=== PATIENT | female | born 1955 | race Caucasian/White ===

== ENCOUNTER → 2017-07-18 08:29 | Outpatient (CLI) | payer OTHER, SELFPAY ==
--- NOTE | 2017-07-18 08:32 | RAD_ITS ---
STUDY: X-RAY - LEFT SHOULDER REASON FOR EXAM: Female, 62 years old. Pain radiating into left arm TECHNIQUE: 3 view(s) of the shoulder. COMPARISON: None. FINDINGS: There is mild degenerative arthrosis of the glenohumeral articulation. Normal acromioclavicular joint. Normal acromion. Normal humeral head and visualized proximal humerus. The soft tissue structures are unremarkable. There is no demonstrated fracture. Normal visualized pulmonary apex. RAD/Shoulder min 2 Views IMPRESSION: Mild degenerative changes of the glenohumeral joint. Electronically Signed: Mathieu Breen MD at 17:08 EDT , Service support ,
== END ==
PROVIDERS: Family Provider Nurse Practitioner Primary Care; PCP Nurse Practitioner Primary Care; Visit Provider Orthopaedic Surgery
DX: M25.512 Pain in left shoulder (principal)
CPT/HCPCS: 73030

== ENCOUNTER 2017-11-02 18:00 | Outpatient (RCR) | payer OTHER, SELFPAY ==
--- NOTE | 2017-10-18 12:19 | HP.PTEVAL_ITS ---
Patient's Visit Information TOBIN CHAIDEZ is a 62 year old F referred to Physical Therapy by Kitty Maharaj DO with a diagnosis of Hip Pain/Lumbar. Date of Evaluation: 10/18/17 Physical Therapist: Loyda Lee - Visit Plan Frequency: 3x /Week Duration: 4 Weeks Plan: Core S/S. Provide current ex's for HEP next session with pics and progress clinical activities slowly. - Subjective Subjective: Patient reports that she has had right sided hip joint pain for as long as she can remember. She has a history of OA and just thought it was arthritis so she ignored the pain. The last few months she felt like her jeans were fitting funny. She felt like she had decreased muscle mass on the right and her emely seam was shifting. She has been to Dr. Maharaj before and decided to see her about this. MD sent her to PT. She reports that pain at its worst is 4/10 Agg: bending forwards, sitting, driving and walking long distances. Pain at its best is a 0/10 Eases: laying down on her back and Ibuprofen. She has had no MRI or x-rays recently but was seeing Dr. Gracia a few years ago for tailbone pain. She had an MRI and x-rays at that time. The tailbone pain MD thought was from an old fracture and just went away. 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 Her sleep is disturbed when she rolls over onto the right side. She has N/T in the big toe that is constant. She has an EMG on December 14. She is sedentary for most of her life and does not exercise. PMHX: hysterectomy, osteoporosis, TMJ, Thyroid. Meds: Synthroid, Zyrtec, Nexium PRN - Objective Posture: FH, RS, Increased kyphosis. Gait: no deviation noted. Stance: mild decrease in muscle mass Right>Left. HR.TR: able without incidence and equal weight shifting. SLS: 10 sec then UE A required- equal bilaterally. ROM: Lumbar: forward flexion: can touch toes but is slow and reports right hip pain, Extn: WNL, SB and Rot: WNL but does report ?discomfort?. Hip/Knee/Ankle: WNL. Sensation/Reflex: WNL- equal bilaterally. Strength: Core: fair minus, Hip: 4/5 throughout, Knee: 5/5, ankle: 5/5- symmetrical. Clam: 3/5. Figure 4: positive , SAPNA: positive. Dural signs: positive on right. Slump: positive on Right, Neural flossing: positive on right with HS stretching. Flex: HS: moderate, Gastroc: mod - Goals Goal 1:: Patient will be I with HEP and progression Goal Time Frame: 4-6 Weeks Goal 2:: Patient will maintain proper posture t/o tx session to demo increased core s/s Goal Time Frame: 4-6 Weeks Goal 3:: Patient will demo 10 clam shells with no soreness/tiredness Goal Time Frame: 2-4 Weeks Goal 4:: Patient will report no N/T for 1 week Goal Time Frame: 4-6 Weeks - Rehabilitation Potential Physical Therapy Diagnosis: Patient presents with hypomobility- she has decrease strength, flex and muscular endurance leading to poor posture and increased pain with activity. Rehabilitation Potential: Fair - Anticipated Interventions Patient/Client Instruction: Educate patient on: Benefits of Fitness Program For the Purpose of:: To increase tolerance to activity/condition/position Therapeutic Exercise to Include: Strength training, Endurance training, Agility training, Body mechanics, Postural training, Flexibilty training, Gait and locomotor training, Dynamic Lumbar Stabilization For the Purpose of:: To improve muscle performance and motor function TENS: Yes Cryotherapy (ice pack, ice massage): Yes Thermo therapy (hot pack): Yes Ultrasound (thermal/non thermal): Yes For the Purpose of:: To decrease pain Thank you for the opportunity to evaluate your patient. For Medicare and Medicare HMO plans, please review the plan of care and approve it. It will need to be FAXED BACK to us at [phone] for Medicare purposes. Please let me know if there are questions or concerns regarding this plan of care. Physician Signature: Date:
--- NOTE | 2018-01-30 16:39 | HP.PT.NRP ---
HP - Discharge Summary (1) - Patient Information TOBIN CHAIDEZ was seen in my office for initial evaluation on 10/18/17. The following Plan of Care was established for this patient: Initial Frequency: 3x /Week Initial Duration: 4 Weeks - Anticipated Interventions Patient/Client Instruction: Educate patient on: Benefits of Fitness Program For the Purpose of:: To increase tolerance to activity/condition/position Therapeutic Exercise to Include: Strength training, Endurance training, Agility training, Body mechanics, Postural training, Flexibilty training, Gait and locomotor training, Dynamic Lumbar Stabilization For the Purpose of:: To improve muscle performance and motor function TENS: Yes Cryotherapy (ice pack, ice massage): Yes Thermo therapy (hot pack): Yes Ultrasound (thermal/non thermal): Yes For the Purpose of:: To decrease pain This patient was last seen in our office . Pertinent comments regarding their Physical therapy will appear below: Patient has not attended physical therapy in over 8 weeks and is appropriate for d/c. At this point I will be discontinuing this patient from physical therapy. I would be happy to see this patient again in the future if found appropriate by the physician. Thank you! Loyda Lee
== END 2017-11-02 19:00 | disposition home or self-care (01) ==
LOC: PT 18:00
PROVIDERS: Family Provider Nurse Practitioner Primary Care; PCP Nurse Practitioner Primary Care; Visit Provider Orthopaedic Surgery
DX: M62.50 Muscle wasting and atrophy, not elsewhere classified, unspecified site (principal); G57.01 Lesion of sciatic nerve, right lower limb
CPT/HCPCS: 97110; 97162

== ENCOUNTER → 2017-12-26 08:21 | Outpatient (CLI) | payer OTHER, SELFPAY | PROVIDERS: Family Provider Nurse Practitioner Primary Care; PCP Nurse Practitioner Primary Care; Visit Provider Nurse Practitioner Primary Care | DX: Z12.31 Encounter for screening mammogram for malignant neoplasm of breast (principal) | CPT/HCPCS: 77063; 77067 ==

== ENCOUNTER → 2018-09-20 | Outpatient (CLI) | payer OTHER, SELFPAY ==
--- NOTE | 2018-09-20 14:48 | RAD_ITS ---
STUDY: X-RAY - RIGHT SHOULDER REASON FOR EXAM: Female, 63 years old. Pain. Status post fall. TECHNIQUE: 4 view(s) of the shoulder. COMPARISON: Left shoulder dated July 18, 2017 FINDINGS: There are mild degenerative changes of the glenohumeral articulation. There are mild degenerative changes of the acromioclavicular joint. Normal acromion. Normal humeral head and visualized proximal humerus. The soft tissue structures are unremarkable. Normal visualized pulmonary apex. RAD/Shoulder min 2 Views IMPRESSION: Mild degenerative changes. Electronically Signed: Mary Gallardo MD at 16:03 EDT Tel , Service support ,
== END | disposition home or self-care (01) ==
LOC: HPRAD 14:47
PROVIDERS: Family Provider Nurse Practitioner Primary Care; PCP Nurse Practitioner Primary Care; Referring Provider Orthopaedic Surgery; Visit Provider Orthopaedic Surgery
DX: M25.511 Pain in right shoulder (principal)
CPT/HCPCS: 73030

== ENCOUNTER 2018-12-09 12:51 | Emergency (ER) | payer OTHER, SELFPAY ==
[2018-12-09 12:52] VITALS: BP 109/70; PULSE 75; RESP 15; TEMP 36.7; O2SAT 98; BMI 22.7
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
== END 2018-12-09 15:21 | disposition home or self-care (01) ==
PROVIDERS: Emergency Provider Emergency Medicine; Family Provider Nurse Practitioner Primary Care; PCP Nurse Practitioner Primary Care
DX: S16.1XXA Strain of muscle, fascia and tendon at neck level, initial encounter (principal); Z87.891 Personal history of nicotine dependence; V43.52XA Car driver injured in collision with other type car in traffic accident, initial encounter; Y93.I9 Activity, other involving external motion; Y92.410 Unspecified street and highway as the place of occurrence of the external cause; Y99.8 Other external cause status
CPT/HCPCS: 70450; 72125; 99282

== ENCOUNTER 2019-01-15 09:00 | Outpatient (RCR) | payer OTHER, SELFPAY ==
--- NOTE | 2018-12-20 15:58 | HP.PTEVAL ---
Patient's Visit Information TOBIN CHAIDEZ is a 63 year old F referred to Physical Therapy by FABY Baker with a diagnosis of Shoulder Pain. Date of Evaluation: 12/20/18 Physical Therapist: Loyda Lee DPT - Visit Plan Frequency: 2x /Week Duration: 3 Weeks Plan: Focus on right shoulder ROM and scapular s/s- modalities as needed - Subjective Findings: Hurt her right arm back in September- she was started to fall and grabbed onto a cupboard and pulled her arm. Went to see Dr. Schaffer in September and reported she had strained her RTC- did not have an injection-but did have x-rays. Waited until about a month later she was in pain and went back to have an injection (October). Over 09 of November she was really good. In the last 2-3 weeks her right shoulder is so painful. Worst: 10/10 Agg: reaching out to the side, behind the back. Best: 2/10 Eases: keeping it close to her body - uses heat a lot. 2 weeks ago she jumped and when she flinched her shoulder she thought she might pass out and has been really bad since then. Called Dr. Schaffer last week and they did not get back with her. Pain is located in the deltoid/tricep and radiates into the back and along the lower portion of the shoulder blade. 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 It now hurts all the time. Sleep: disturbed- can not lay on the right shoulder. Describes pain as excrutiating-sharp/shooting. When she moves it out of that position it lets up but still hurts. 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 Does lots of lifting. Does not feel that she can live with her shoulder the way it currently is. - Objective Posture: FH, RS, increased guarding of the right UE. Gait: no deviation lower LE but does have decreased arm swing on the right with decreased trunk rotation. Palpation: tender along upper trap, scapula and deltoid. ROM: finger dexterity: WNL, Wrist: WNL, Elbow: WNL Shoulder AROM: flexion: 90 degrees, Abd: 85 degrees, IR: to pocket, ER: 40 degrees with pain at all end ranges AAROM/PROM: hard to measure due to increased pain and guarding. 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 Scap: fair minus. Special Test: impingment: unable to test secondary to decreased ROM, Empty can: positive, lift off: positive - Goals Goal 1:: Patient will be I with HEP and progression Goal Time Frame: 4-6 Weeks Goal 2:: Patient will demo full Arom of the right shoulder Goal Time Frame: 4-6 Weeks Goal 3:: Patient will maintain proper posture t/o tx session to demo increased scap s/s. Goal Time Frame: 4-6 Weeks Goal 4:: Patient will report 0/10 pain for 1 week Goal Time Frame: 4-6 Weeks - Rehabilitation Potential Physical Therapy Diagnosis: Patient presents with hypomobility- she has decreased ROM, strength and muscular endurance leading to poor posture and increased pain with ADL's. Rehabilitation Potential: Fair - Anticipated Interventions Patient/Client Instruction: Educate patient on: Benefits of Fitness Program Therapeutic Exercise to Include: Strength training, Body mechanics, Postural training, Flexibilty training, Passive ROM, Active ROM, Scapular Strength/Stabilization For the Purpose of:: To improve muscle performance and motor function TENS: Yes Cryotherapy (ice pack, ice massage): Yes Thermo therapy (hot pack): Yes Ultrasound (thermal/non thermal): Yes Thank you for the opportunity to evaluate your patient. For Medicare and Medicare HMO plans, please review the plan of care and approve it. It will need to be FAXED BACK to us at [phone] for Medicare purposes. For Medicare only, by signing this I certify the plan of care. Please let me know if there are questions or concerns regarding this plan of care. Physician Signature: Date:
--- NOTE | 2019-01-15 09:20 | HP.PTDCSUM_ITS ---
HP - PT D/C Summary It has been my pleasure to treat TOBIN CHAIDEZ under orders from FABY Baker, for the diagnosis of Shoulder Pain for a total of 7 visit(s). Discharge Date: Please see the following information for a summary of their discharge status. - Subjective Subjective: Patient reports that the shoulder is a little better- She had a cortisone injection Dec 27- so she is not sure whether its better from the cortisone or the PT. Its still really hard to put weight through her arm, put her bra on, behind the back and overhead activities. Sleep: disturbed. Sees him next Tuesday- she wants an MRI. - Overall Improvement % Improvement: 80 - Objective Objective/Function: Posture: FH, RS, increased guarding of the right UE. Gait: no deviation lower LE but does have decreased arm swing on the right with d ecreased trunk rotation. Palpation: tender along upper trap, scapula and deltoid. ROM: finger dexterity: WNL, Wrist: WNL, Elbow: WNL Shoulder AROM: flexion: 110 degrees, Abd: 85 degrees, IR: to belt line, ER: 60 degrees with pain at all end ranges AAROM/PROM: hard to measure due to increased pain and guarding. 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 Scap: fair minus. Special Test: impingment: unable to test secondary to decreased ROM, Empty can: positive, lift off: positive. Slight changes but no significant funtional changes. - Goals Goal 1:: Patient will be I with HEP and progression Goal 2:: Patient will demo full Arom of the right shoulder Goal 3:: Patient will maintain proper posture t/o tx session to demo increased scap s/s. Goal 4:: Patient will report 0/10 pain for 1 week - Plan Plan: Return to MD for further evaluation. - D/C Information If there are questions or concerns regarding this patient's physical therapy, please feel free to call me at [phone]. Thank you for the referral of this patient. Sincerely, Loyda Lee DPT
== END 2019-01-15 19:00 | disposition home or self-care (01) ==
LOC: PT 09:00
PROVIDERS: Family Provider Nurse Practitioner Primary Care; PCP Nurse Practitioner Primary Care; Referring Provider Physician Assistant; Visit Provider Physician Assistant
DX: S46.011D Strain of muscle(s) and tendon(s) of the rotator cuff of right shoulder, subsequent encounter (principal); M75.41 Impingement syndrome of right shoulder
CPT/HCPCS: 97110; 97161; 97164

== ENCOUNTER → 2019-02-12 | Outpatient (CLI) | payer OTHER, SELFPAY ==
[2019-01-17 08:53] VITALS: BMI 22.7
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
== END | disposition home or self-care (01) ==
LOC: MRI 13:17
PROVIDERS: Family Provider Nurse Practitioner Primary Care; PCP Nurse Practitioner Primary Care; Referring Provider Orthopaedic Surgery; Visit Provider Orthopaedic Surgery
DX: M75.01 Adhesive capsulitis of right shoulder (principal)
CPT/HCPCS: 73221

== ENCOUNTER → 2019-06-04 11:59 | Outpatient (CLI) | payer OTHER, SELFPAY ==
[2019-02-14 08:07] VITALS: BMI 22.7
[2019-06-04 14:10] LABS: Ferritin 103 ng/mL (8-252)
[2019-06-05 09:10] LABS: Thyroid Peroxidase AB 30 IU/mL (0-34)
[2019-06-07 00:43] LABS: Anti-Nuclear Antibody Test Negative (.)
== END ==
PROVIDERS: PCP Nurse Practitioner Primary Care; Referring Provider Dermatology Pediatric Dermatology; Visit Provider Dermatology Pediatric Dermatology
DX: E03.8 Other specified hypothyroidism (principal); D18.01 Hemangioma of skin and subcutaneous tissue
CPT/HCPCS: 36415; 82728; 86038; 86376

== ENCOUNTER → 2020-03-06 | Outpatient (CLI) | payer OTHER, SELFPAY ==
[2019-02-14 08:07] VITALS: BMI 22.7
== END | disposition home or self-care (01) ==
LOC: MTDU 10:39
PROVIDERS: PCP Nurse Practitioner Primary Care; Referring Provider Nurse Practitioner Primary Care; Visit Provider Nurse Practitioner Primary Care
DX: Z20.828 Contact with and (suspected) exposure to other viral communicable diseases (principal)
CPT/HCPCS: 87635; C9803; U0003

== ENCOUNTER 2020-09-19 17:13 | Emergency (ER) | payer OTHER, SELFPAY ==
[2019-02-14 08:07] VITALS: BMI 22.7
[2020-09-19 17:15] VITALS: BP 162/83; PULSE 68; RESP 17; TEMP 36.5; O2SAT 97; BMI 28.6
--- NOTE | 2020-09-19 17:47 | EDS_ITS ---
HPI History of Present Illness Chief Complaint: Abd Pain Informant: patient Narrative Narrative: 65-year-old female presenting with left lower quadrant pain. Patient states she has had this for a couple of weeks. She saw her primary care physician today and was sent in to the ED due to concern for possible diverticulitis. She states she has left lower quadrant and left-sided back pain. She denies injury. Denies urinary complaints. She states she has had diarrhea and constipation intermittently. No fever. No other complaints. PFSH PFSH Home Medications levothyroxine 50 mcg PO DAILY 05/10/14 [History Last Taken Unknown] valacyclovir 500 mg PO DAILY 12/09/18 [History Last Taken Unknown] meloxicam 15 mg tablet 15 mg PO DAILY #30 tab 12/25/18 [Rx Last Taken Unknown] cyclobenzaprine 10 mg PO TID PRN #20 tablet 09/19/20 [Rx Last Taken Unknown] Allergy/AdvReac Type Severity Reaction Status Date / Time metronidazole [From Flagyl] Allergy Hives Verified 09/19/20 17:14 sulfamethoxazole Allergy Hives Verified 09/19/20 17:14 [From Bactrim] trimethoprim [From Bactrim] Allergy Hives Verified 09/19/20 17:14 Social History (Updated 02/19/19 @ 11:[address] Del Perez, DO) Smoking Status: Never smoker ROS ROS ED Constitutional Constitutional ED: Denies fever(s) Eyes Eyes: Denies change in vision ENT ENT ED: Denies rhinorrhea or sore throat Cardiovascular Cardiovascular: Denies chest pain or palpitations Respiratory/Chest Respiratory/Chest: Denies cough or dyspnea Gastrointestinal Gastrointestinal: Reports abdominal pain, constipation, diarrhea and nausea; Denies vomiting Genitourinary Genitourinary ED: Denies dysuria or hematuria Musculoskeletal Musculoskeletal: Reports back pain; Denies myalgias Integumentary Denies rash Neurologic Neurologic: Denies headache(s) Psychiatric Psychiatric: Denies suicidal thoughts EXAM Physical Exam Const Vital Signs: 09/19/20 17:15 Temperature 97.7 F L Temperature Source Temporal Pulse Rate 68 Respiratory Rate 17 Blood Pressure 162/83 H Blood Pressure Mean 109 Pulse Ox 97 Oxygen Delivery Method Room Air Positive well nourished and well developed General Appearance ED: well developed HEENT Reports normocephalic and head/scalp atraumatic Eyes PERRL and EOMs intact bilaterally Neck supple General: Negative for tenderness Chest Wall inspection of chest normal Resp normal respiratory effort and clear to auscultation bilaterally Cardio regular rate and regular rhythm GI non-distended Palpation: soft and tender LLQ; Negative for guarding or rebound tenderness present no CVA tenderness Extremity normal to inspection Neuro oriented x3 Sensorium / Orientation: alert Psych mental status grossly normal Skin no rashes or lesions noted MDM MDM MDM Narrative Medical decision making narrative: Patient declined pain medications. Labs are unremarkable. CT abdomen pelvis shows no acute process. Her back pain is likely musculoskeletal, she was given a prescription for Flexeril. She is advised to follow-up with GI physician. Advised return to ED for worsening complaints. Lab Data Attestation: I reviewed the patient's lab results. Labs: Laboratory Results - last 24 hr 09/19/20 09/19/20 09/19/20 18:30 19:10 19:10 WBC 9.8 RBC 4.74 Hgb 14.7 Hct 43.8 MCV 92.4 MCH 31.0 MCHC 33.6 RDW Std Deviation 41.3 RDW Coeff of Estela 12.1 Plt Count 284 MPV 9.9 Sodium Cancelled Potassium Cancelled Chloride Cancelled Carbon Dioxide Cancelled Anion Gap Cancelled BUN Cancelled Creatinine Cancelled Estim Creat Clear Calc Cancelled Est GFR (MDRD) Af Amer Cancelled Est GFR (MDRD) Non-Af Cancelled BUN/Creatinine Ratio Cancelled Glucose Cancelled Calcium Cancelled Urine Color Yellow Urine Clarity Clear Urine pH 6.0 Ur Specific [place] 1.015 Urine Protein Negative Urine Glucose (UA) Normal Urine Ketones Negative Urine Occult Blood Negative Urine Nitrite Negative Urine Bilirubin Negative Urine Urobilinogen Normal Ur Leukocyte Esterase Negative Urine RBC 0 SEEN Urine WBC 0 SEEN Ur Squamous Epith Cells 0 SEEN Urine Bacteria 0 SEEN Urine Mucus 0 SEEN 09/19/20 20:15 WBC RBC Hgb Hct MCV MCH MCHC RDW Std Deviation RDW Coeff of Estela Plt Count MPV Sodium 140 Potassium 3.7 Chloride 107 Carbon Dioxide 30.0 Anion Gap 3 L BUN 15 Creatinine 0.66 Estim Creat Clear Calc 70.30 Est GFR (MDRD) Af Amer 115 Est GFR (MDRD) Non-Af 95 BUN/Creatinine Ratio 22.6 H Glucose 93 Calcium 9.4 Urine Color Urine Clarity Urine pH Ur Specific [place] Urine Protein Urine Glucose (UA) Urine Ketones Urine Occult Blood Urine Nitrite Urine Bilirubin Urine Urobilinogen Ur Leukocyte Esterase Urine RBC Urine WBC Ur Squamous Epith Cells Urine Bacteria Urine Mucus Radiography Diagnostic Testing: Radiology Impression Abdomen/Pelvis CT 09/19/20 20:26 IMPRESSION: 1. No evidence of acute intra-abdominal or pelvic process. 2. Bilateral renal cysts. 3. Old granulomatous disease. 4. Gallstone without acute cholecystitis. 5. Status post hysterectomy. Electronically Signed: Stephon KellyDO at 20:58 EDT Tel [phone], Service support , Discharge Plan Triage Chief Complaint: Abd Pain ED Provider: Alexandra Coronel Dx/Rx/DC Orders Clinical Impression: Back pain, Abdominal pain, LLQ Instructions: ED Abdominal Pain Unkn Cause Fem, ED Back Pain (Acute or Chronic) Prescriptions: New cyclobenzaprine [cyclobenzaprine] 10 MG tablet 10 mg PO TID PRN (Reason: Muscle Spasm) Qty: 20 RF: 0 No Action meloxicam [Mobic] 15 mg tablet 15 mg PO DAILY Qty: 30 RF: 0 levothyroxine 50 MCG tablet 50 mcg PO DAILY RF: 0 valacyclovir 500 MG tablet 500 mg PO DAILY RF: 0 Primary Care Provider: Frederick Soto Referrals: Aubrey Lopez MD [NON-STAFF] - Frederick Soto MD [Primary Care Provider] - Disposition Disposition: Home, self care
[2020-09-19 19:08] LABS: Bacteria 0 SEEN /hpf (None Seen); Mucous, Urine 0 SEEN /hpf (<or=2+); Red Blood Cells-Urine 0 SEEN /hpf (0-5); Squamous Epithelial Cells - UA 0 SEEN /hpf (5-10); White Blood Cells 0 SEEN /hpf (0-5)
[2020-09-19 19:09] LABS: Color, Urine Yellow (Yellow); Glucose, Dipstick Normal (Normal); Ketone-Dipstick Negative (Negative); Leukocyte Esterase-Dipstick Negative /ul (Negative); Nitrite-Dipstick Negative (Negative); Occult Blood-Urine Negative /ul (Negative); Protein-Dipstick Negative (Negative); Specific Gravity, Urine 1.015 (1.002-1.030); Urine Bilirubin Dipstick Negative (Negative); Urine Clarity Clear (Clear); Urine Urobilinogen Normal (Normal)
[2020-09-19 19:21] LABS: Hematocrit 43.8 % (37-47); Hemoglobin 14.7 g/dL (12.0-15.0); Mean Corp Hgb Conc 33.6 g/dL (32-36); Mean Corpuscular Volume 92.4 fL (81-99); Mean Platelet Vol. 9.9 fl (6.2-12.0); Platelet Count 284 K/mm3 (150-450); RBC Distribution Width CV 12.1 % (11.6-14.6); RBC Distribution Width SD 41.3 fl (35.1-43.9); Red Blood Count 4.74 M/mm3 (4.2-5.4); White Blood Count 9.8 K/mm3 (4.4-11.0)
--- NOTE | 2020-09-19 20:26 | CT_ITS ---
STUDY: CT ABDOMEN AND PELVIS WITH CONTRAST REASON FOR EXAM: Female, 65 years old. Lower quadrant pain. RADIATION DOSAGE (If Supplied By Facility): CTDIvol = ( 16.28 ) mGy, DLP = ( 1029.92 ) mGycm TECHNIQUE: Transaxial images were obtained from the dome of the diaphragm to the symphysis pubis with oral contrast. Oral and amp; IV Gastrografin and amp; 100mL Isovue-300 was administered. Sagittal and coronal images were reconstructed. Individualized dose optimization techniques were used for this CT. COMPARISON: None. FINDINGS: Small calcified granuloma in the right lower lobe just above the diaphragm. Lungs are otherwise clear. The visualized portions of the heart are within normal limits. Normal liver. Single small gallstone without inflammatory change or biliary ductal dilatation. There are multiple benign calcified granulomata of the spleen. Normal pancreas. Normal bilateral adrenal glands. All cortical cyst in the upper pole of the right kidney. The kidney is otherwise unremarkable. The small exophytic cyst off the lower pole of the left kidney. Normal visualized ureters. Normal visualized stomach. Normal small intestine. Normal colon. There is non-visualization of the appendix. Minimal atherosclerotic changes in the aorta without aneurysm or dissection. Normal inferior vena cava. Normal retroperitoneum. Normal urinary bladder. Unremarkable vaginal cuff. There are phleboliths in the pelvis without lymphadenopathy. No free air or free fluid is seen within the peritoneal cavity. Small umbilical hernia of omental fat. The abdominal wall is otherwise unremarkable. Normal osseous structures. CT/Abdomen/Pelvis WITH Contrast IMPRESSION: 1. No evidence of acute intra-abdominal or pelvic process. 2. Bilateral renal cysts. 3. Old granulomatous disease. 4. Gallstone without acute cholecystitis. 5. Status post hysterectomy. Electronically Signed: Stephon Kelly DO at 20:58 EDT Tel [phone], Service support ,
[2020-09-19 20:40] LABS: Anion Gap 3 (5-15); BUN 15 mg/dL (7-18); BUN/Creat Ratio 22.6 RATIO (10-20); Calcium,Total 9.4 mg/dL (8.5-10.1); Chloride 107 mmol/L (98-107); Creatinine, Serum 0.66 mg/dL (0.55-1.02); EST Glomerular Filtration Rate 95 mL/min (>60); Est Glom Filt Rate - Afr Amer 115 mL/min (>60); Glucose 93 mg/dL (74-106); Potassium 3.7 mmol/L (3.5-5.1); Sodium Level 140 mmol/L (136-145)
[2020-09-19 21:52] VITALS: BP 157/79; PULSE 55; RESP 18; O2SAT 99
== END 2020-09-19 21:52 | disposition home or self-care (01) ==
PROVIDERS: Emergency Provider Emergency Medicine; PCP Family Medicine
DX: R10.32 Left lower quadrant pain (principal); M54.9 Dorsalgia, unspecified
CPT/HCPCS: 74177; 80048; 81001; 85027; 99285; Q9967; A4216